=== PATIENT | male | born 1950 | race Caucasian/White ===

== ENCOUNTER 2019-02-01 15:58 | Emergency (ER) | payer BC, MEDICARE ==
[2019-02-01] MEDS ORDERED: Aspirin 81 MG Tab.Chew ONE (16:04)
[2019-02-01] MEDS ORDERED: Nitroglycerin 0.4 MG Tab.SL ONE (16:06)
[2019-02-01] MEDS ORDERED: Clopidogrel 75 MG Tab PO ONE (16:13)
[2019-02-01] MEDS ORDERED: Nitroglycerin 0.4 MG Tab.SL SL ONE (16:13)
[2019-02-01] MEDS ORDERED: Heparin Sodium 5,000 Units/ML Vial IVPUSH ONE (16:14)
[2019-02-01] MEDS ORDERED: Heparin Sodium/D5W 500 ML ONE (16:14)
[2019-02-01] MEDS ORDERED: Heparin Sodium/D5W 25,000 UNITS/500 ML BAG IV SCH (16:15)
--- NOTE | 2019-02-01 16:23 | EDM.PDOC ---
ED HPI GENERAL MEDICAL PROBLEM - General Chief Complaint: Chest Pain Stated Complaint: CHEST PAIN Time Seen by Provider: 02/01/19 16:00 Source of Information: Reports: Patient History Limitations: Reports: No Limitations - History of Present Illness INITIAL COMMENTS - FREE TEXT/NARRATIVE: 68-year-old male arrives with upper chest pain and arm pain while chopping firewood. Symptoms started 2 hours ago, seemed to wax and wane for an hour but are more intense the last 30 minutes. Some shortness of breath but no diaphoresis. Mild nausea. He came in to be evaluated and placed on a patient monitor and appears to have ST elevation. Onset: Sudden Duration: Hour(s): (2 hours ago) Location: Reports: Chest Associated Symptoms: Reports: Chest Pain, Shortness of Breath. Denies: Cough, Diaphoresis, Fever/Chills, Nausea/Vomiting Chest Pain Score (Numeric/FACES): 9 - Related Data Allergies Allergy/AdvReac Type Severity Reaction Status Date / Time No Known Allergies Allergy Verified 02/01/19 16:21 Home Meds: Home Meds Amitriptyline [Elavil] 10 mg PO QPM 07/07/14 [History] Aspirin [Halfprin] 81 mg PO QPM 07/07/14 [History] Metoprolol Succinate [Toprol XL] 50 mg PO QAM 07/07/14 [History] Multivitamin [Daily Vitamin] 1 tab PO QAM 07/07/14 [History] Niacin [Niaspan] 1,000 mg PO QPM 07/07/14 [History] atorvaSTATin [Lipitor] 20 mg PO QPM 07/07/14 [History] metFORMIN HCl [Metformin HCl] 1,000 mg PO BID 07/07/14 [History] Nitroglycerin [Nitrostat] 0.4 mg SL ASDIRECTED PRN 08/19/15 [History] Tolterodine [Detrol LA 24 Hr] 4 mg PO DAILY 08/19/15 [History] Multivitamin with Minerals [Multiple Vitamin] 1 tab PO DAILY 08/04/16 [History] Past Medical History HEENT History: Reports: Hard of Hearing, Other (See Below) 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 Cardiovascular History: Reports: CAD, Hypertension, Stents Respiratory History: Reports: Sleep Apnea Genitourinary History: Reports: BPH Musculoskeletal History: Reports: Other (See Below) Other Musculoskeletal History: left shoulder pain, right shoulder pain Neurological History: Reports: Other (See Below) Other Neuro History: 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 Endocrine/Metabolic History: Reports: Diabetes, Type II - Infectious Disease History Infectious Disease History: Reports: Chicken Pox, Measles, Mumps, Rubella, Shingles - Past Surgical History Cardiovascular Surgical History: Reports: Coronary Artery Stent Respiratory Surgical History: Reports: None GI Surgical History: Reports: Colonoscopy Endocrine Surgical History: Reports: None Musculoskeletal Surgical History: Reports: Shoulder Surgery Social & Family History - Tobacco Use Smoking Status *Q: Heavy Tobacco Smoker Years of Tobacco use: 50 Packs/Tins Daily: 1 - Caffeine Use Caffeine Use: Reports: Coffee Caffeine Use Comment: 4 cups per day - Recreational Drug Use Recreational Drug Use: No ED ROS GENERAL - Review of Systems Review Of Systems: See Below Constitutional: Denies: Fever, Chills HEENT: Reports: No Symptoms Respiratory: Reports: Shortness of Breath (Mild) Cardiovascular: Reports: Chest Pain. Denies: Palpitations GI/Abdominal: Denies: Nausea, Vomiting : Reports: No Symptoms Musculoskeletal: Reports: Arm Pain Skin: Reports: No Symptoms. Denies: Diaphoresis Neurological: Reports: No Symptoms ED EXAM, GENERAL - Physical Exam Exam: See Below Exam Limited By: No Limitations General Appearance: Alert, No Apparent Distress Eye Exam: Bilateral Eye: EOMI Head: Atraumatic Respiratory/Chest: No Respiratory Distress, Lungs Clear Cardiovascular: Regular Rate, Rhythm GI/Abdominal: Soft, Non-Tender Extremities: Normal Inspection. No: Pedal Edema Neurological: Alert, Oriented EKG INTERPRETATION ST-T: Elevated (Inferior leads consistent with RCA acute infarct) Course - Vital Signs Last Recorded V/S: Last Vital Signs Temp 94 F L 02/01/19 16:11 Pulse 74 02/01/19 16:20 Resp 16 02/01/19 16:20 BP 169/102 H 02/01/19 16:21 Pulse Ox 98 02/01/19 16:20 - Orders/Labs/Meds Labs: Laboratory Tests 02/01/19 02/01/19 Range/Units 16:09 16:09 WBC 9.4 (4.5-11.0) K/uL RBC 4.81 (4.30-5.90) M/uL Hgb 15.2 H D (12.0-15.0) g/dL Hct 44.1 (40.0-54.0) % MCV 92 (80-98) fL MCH 32 H (27-31) pg MCHC 35 (32-36) % Plt Count 200 (150-400) K/uL Neut % (Auto) 72 H (36-66) % Lymph % (Auto) 16 L (24-44) % [place] % (Auto) 11 H (2-6) % Eos % (Auto) 2 (2-4) % Baso % (Auto) 0 (0-1) % Sodium 141 (140-148) mmol/L Potassium 4.1 (3.6-5.2) mmol/L Chloride 102 (100-108) mmol/L Carbon Dioxide 26 (21-32) mmol/L Anion Gap 13.0 (5.0-14.0) mmol/L BUN 15 (7-18) mg/dL Creatinine 1.2 (0.8-1.3) mg/dL Est Cr Clr Drug Dosing 67.51 mL/min Estimated GFR (MDRD) > 60 (>60) Glucose 131 H (74-106) mg/dL Calcium 10.5 H D (8.5-10.1) mg/dL Total Bilirubin 1.1 H D (0.2-1.0) mg/dL AST 30 (15-37) U/L ALT 32 (12-78) U/L Alkaline Phosphatase 62 (46-116) U/L Troponin I < 0.017 (0.000-0.056) ng/mL Total Protein 8.0 (6.4-8.2) g/dL Albumin 4.5 (3.4-5.0) g/dL Globulin 3.5 (2.3-3.5) g/dL Albumin/Globulin Ratio 1.3 (1.2-2.2) Meds: Medications Discontinued Medications Generic Name Dose Route Start Last Admin Trade Name Kodyq PRN Reason Stop Dose Admin Aspirin Confirm 02/01/19 16:04 02/01/19 16:34 Aspirin Administered 02/01/19 16:05 Not Given Dose 243 mg .ROUTE .STK-MED ONE Aspirin 243 mg 02/01/19 16:28 02/01/19 16:10 Aspirin PO 02/01/19 16:29 243 mg ONETIME ONE Administration Clopidogrel Bisulfate 600 mg 04/24/19 16:13 02/01/19 16:21 Plavix PO 02/01/19 16:14 600 mg ONETIME ONE Administration Heparin Sodium (Porcine) 5,000 units 02/01/19 16:14 02/01/19 16:21 Heparin Sodium IVPUSH 02/01/19 16:15 5,000 units ONETIME ONE Administration Heparin Sodium/Dextrose 25,000 units in 500 mls @ 20 mls/hr 02/01/19 16:15 16:22 Heparin 25,000 Units In D5w 500 Ml IV 1,000 units/hr TITRATE CHU 20 mls/hr Administration Protocol 1,000 UNITS/HR Heparin Sodium/Dextrose Confirm 02/01/19 16:14 02/01/19 16:23 Heparin 25,000 Units In D5w 500 Ml Administered 02/01/19 16:15 Not Given Dose 500 mls @ as directed .ROUTE .STK-MED ONE Nitroglycerin Confirm 02/01/19 16:06 02/01/19 16:24 Nitrostat Administered 02/01/19 16:07 Not Given Dose 0.4 mg .ROUTE .STK-MED ONE Nitroglycerin 0.4 mg 02/01/19 16:13 02/01/19 16:21 Nitrostat SL 02/01/19 16:14 0.4 mg ONETIME ONE Administration - Re-Assessments/Exams Free Text/Narrative Re-Assessment/Exam: 02/01/19 16:22 IV was started, patient was given one sublingual nitroglycerin and also 3 low- dose aspirin as he had already had one dose. Urgent cardiology consultation was made, patient was prepared for transport for urgent catheterization evaluation. He was given 600 mg of oral Plavix, 5000 units of IV heparin and 1000 unit an hour drip was initiated to be continued in route. 02/01/19 16:27 Patient remained stable, Dr. Estrella, cardiology in [place] accepted the patient and he was urgently transferred. Departure - Departure Time of Disposition: 16:20 Disposition: DC/Tfer to Acute Hospital 02 Reason for Transfer *Q: Primary PCI Indicated Clinical Impression: Acute myocardial infarction Qualifiers: Myocardial infarction type: ST elevation myocardial infarction Involved coronary artery: right coronary artery Qualified Code(s): I21.11 - ST elevation (STEMI) myocardial infarction involving right coronary artery Referrals: PCP,None [Primary Care Provider] - Forms: ED Department Discharge
[2019-02-01] MEDS ORDERED: Aspirin 81 MG Tab.Chew PO ONE (16:28)
[2019-02-01 16:36] VITALS: BP 157/83
== END 2019-02-01 16:30 ==
LOC: JP.ED 15:58
DX: I21.11 ST elevation (STEMI) myocardial infarction involving right coronary artery (principal); I10 Essential (primary) hypertension; E11.9 Type 2 diabetes mellitus without complications; F17.210 Nicotine dependence, cigarettes, uncomplicated; Z79.899 Other long term (current) drug therapy
CPT/HCPCS: 36415; 80053; 84484; 85025; 93005; 96374; 99285; A9270; J1644

== ENCOUNTER 2019-10-02 06:29 | Day surgery (SDC) | payer BC, MEDICARE ==
[2019-10-02] MEDS ORDERED: Bupivacaine 0.5% 50 ML MDV ONE (06:52)
[2019-10-02] MEDS ORDERED: Lactated Ringers 1,000 ML IV SCH (07:00)
[2019-10-02] MEDS ORDERED: ceFAZolin 1 GM in Premix Bag 1 BAG IV ONE (07:30)
[2019-10-02] MEDS ORDERED: Propofol 200 MG/20 ML SDV ONE (07:37)
[2019-10-02] MEDS ORDERED: fentaNYL 100 MCG/2 ML SDV ONE (07:38)
[2019-10-02] MEDS ORDERED: Midazolam 1 MG/ML 2 ML SDV ONE (07:38)
[2019-10-02] MEDS ORDERED: Lidocaine 0.5% 50 ML SDV ONE (07:41)
[2019-10-02 09:23] VITALS: BP 117/77; PULSE 52
--- NOTE | 2019-10-09 19:18 | OR ---
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 POSTOPERATIVE DIAGNOSIS: Stenosing tenosynovitis, 3rd and 4th fingers, left hand. PROCEDURE: Release of A1 silvio, 3rd and 4th fingers, left hand. ANESTHESIA: [place] block with sedation. INDICATIONS: Ck is a pleasant 68-year-old gentleman, who has had persistent pain, catching, and locking of the 3rd and 4th fingers of his left hand. He has failed conservative treatment. He now presents for release of A1 silvio in each finger. Risks, benefits, potential complications of the procedure were discussed. DESCRIPTION OF PROCEDURE: After adequate anesthesia was obtained, the patient was supine, and the left hand was prepped and draped in a sterile fashion. A transverse incision was made on the palmar aspect in line with the distal flexion crease over the flexor tendons of the third finger. This was carried down through the subcutaneous tissues and tissues were spread protecting the digital nerves. Flexor tendon was identified and under direct visualization, an incision was made in the A1 silvio longitudinally. This was extended using an iris scissors proximally and distally. Confirmation of release of the silvio was done both by palpation and by visualization. The tendons were examined showing some thickening, but no other significant abnormalities. Attention was then turned to the 4th finger where a similar incision was made and carried down to the subcutaneous tissues. Tissues were spread. The flexor tendon was identified. Longitudinal incision was made in the A1 silvio with a 15 blade and then continued with an iris scissors. Confirmation of release of the silvio was made by palpation and by visualization. The tendons were evaluated and were found to have thickening and some degenerative partial tear noted along one slip of the flexor sublimis. This was debrided. Both wounds were then irrigated and closed with 4-0 nylon in interrupted mattress fashion. Both incisions were infiltrated in the skin with 0.25% Marcaine and a sterile dressing was applied. The patient tolerated the procedure very well. There were no complications. He was taken from the operating room in stable condition. Chente Zimmerman MD /[id number] [facility]Carol
== END 2019-10-02 09:40 | disposition home or self-care (01) ==
LOC: JP.SDS 06:29
PROVIDERS: ATTEND Specialist
DX: M65.332 Trigger finger, left middle finger (principal); M65.342 Trigger finger, left ring finger; G47.33 Obstructive sleep apnea (adult) (pediatric); I10 Essential (primary) hypertension; I25.10 Atherosclerotic heart disease of native coronary artery without angina pectoris; E11.9 Type 2 diabetes mellitus without complications; Z88.8 Allergy status to other drugs, medicaments and biological substances; Z87.891 Personal history of nicotine dependence; Z99.89 Dependence on other enabling machines and devices
CPT/HCPCS: 26055; 36415; 80048; 85027; J0690; J2001; J2250; J2704; J3010; J3490; J7120

== ENCOUNTER 2020-12-26 06:20 | Day surgery (SDC) | payer BC ==
[2020-12-26] MEDS ORDERED: Propofol 200 MG/20 ML SDV ONE (07:26)
[2020-12-26] MEDS ORDERED: fentaNYL 100 MCG/2 ML SDV ONE (07:26)
[2020-12-26] MEDS ORDERED: Midazolam 1 MG/ML 2 ML SDV ONE (07:26)
[2020-12-26] MEDS ORDERED: Sodium Chloride 0.9% 1,000 ML IV SCH (07:30)
[2020-12-26 10:29] VITALS: BP 109/62; PULSE 66
--- NOTE | 2020-12-26 11:00 | OR ---
DATE OF PROCEDURE: 12/26/2020 SURGEON: Jun Wang MD PROCEDURE: Colonoscopy. FINDINGS: 1. Ascending colon polyp, approximately 5 mm, completely removed using hot snare wire device. 2. Diverticulosis, mild to moderate, mostly concentrated in the sigmoid colon with a few noted in the remainder of the colon. COMPLICATIONS: None. RUBBER CUTTER: None. ANESTHESIA: MAC. PREOPERATIVE DIAGNOSIS: Positive Cologuard. POSTOPERATIVE DIAGNOSIS: Positive Cologuard. RISKS: Risks, benefits, alternatives, and limitations including, but not limited to infection, bleeding, perforation, false positives, false negatives were explained to the patient who wished to proceed. PROCEDURE IN DETAIL: The patient was placed in left lateral decubitus position. Digital rectal exam was performed without abnormality. Scope was introduced and advanced atraumatically to the ileocecal valve. A photo was taken of this. Scope was brought back to the ascending, transverse, descending colon, and retroflexed. The patient was noted to have diverticulosis, which would be described as without diverticulitis or bleeding, mostly concentrated in the sigmoid colon but throughout the entire colon. No evidence of colitis. No old or new blood. The aforementioned polyp was identified and completely removed. No abnormalities on retroflexion. The patient tolerated the procedure well. Greater than 12 minutes was spent removing the scope. No abnormalities on retroflexion. The prep was acceptable with approximately 90% of the luminal surface could be seen with some solid and liquid stool remaining. Jun Wang MD /[id number]
== END 2020-12-26 10:25 | disposition home or self-care (01) ==
LOC: JP.SDS 06:20
PROVIDERS: ATTEND Surgery
DX: K63.5 Polyp of colon (principal); K57.30 Diverticulosis of large intestine without perforation or abscess without bleeding; I10 Essential (primary) hypertension; I25.10 Atherosclerotic heart disease of native coronary artery without angina pectoris; E11.9 Type 2 diabetes mellitus without complications; I25.2 Old myocardial infarction; E66.9 Obesity, unspecified; Z68.25 Body mass index [BMI] 25.0-25.9, adult; Z87.891 Personal history of nicotine dependence; Z88.8 Allergy status to other drugs, medicaments and biological substances
CPT/HCPCS: 88305; J2250; J2704; J3010; J7030

== ENCOUNTER 2022-10-08 06:53 | Day surgery (SDC) | payer BC, MEDICARE ==
[2022-10-08] MEDS ORDERED: Propofol 200 MG/20 ML SDV ONE (07:22)
[2022-10-08] MEDS ORDERED: Midazolam 1 MG/ML 2 ML SDV ONE (07:22)
[2022-10-08] MEDS ORDERED: fentaNYL 50 MCG/ML SDV ONE (07:22)
[2022-10-08] MEDS ORDERED: Lactated Ringers 1,000 ML IV SCH (07:30)
[2022-10-08 09:45] VITALS: BP 130/69; PULSE 50
== END 2022-10-08 09:51 | disposition home or self-care (01) ==
LOC: JP.SDS 06:53
PROVIDERS: ATTEND Family Medicine
DX: Z12.11 Encounter for screening for malignant neoplasm of colon (principal); D12.5 Benign neoplasm of sigmoid colon; D12.3 Benign neoplasm of transverse colon; K57.30 Diverticulosis of large intestine without perforation or abscess without bleeding; E11.9 Type 2 diabetes mellitus without complications; Z86.010 Personal history of colon polyps; Z88.8 Allergy status to other drugs, medicaments and biological substances; Z95.5 Presence of coronary angioplasty implant and graft; Z79.899 Other long term (current) drug therapy
CPT/HCPCS: 45380; 88305; J2250; J2704; J3010; J7120

== ENCOUNTER 2024-03-27 07:40 | Inpatient (IN) | payer OTHER, MEDICARE ==
[2024-03-27] MEDS ORDERED: Naloxone 0.4 MG/ML SDV IVPUSH PRN ×2 (09:10→13:35)
[2024-03-27 09:21] LABS: BASOPHILS PERCENT AUTO 0.2 % (0.1-1.3); EOSINOPHILS ABSOLUTE AUTO 0.03 K/uL (0.00-0.40); EOSINOPHILS PERCENT AUTO 0.3 % (0.0-5.4); HEMOGLOBIN 13.5 g/dL (12.9-16.9); IMMATURE GRAN ABSOLUTE AUTO 0.04 K/uL (0.00-0.23); IMMATURE GRAN PERCENT AUTO 0.4 % (0.0-0.7); LYMPHOCYTES ABSOLUTE AUTO 0.56 K/uL (0.8-3.3); LYMPHOCYTES PERCENT AUTO 5.5 % (11.4-47.7); MEAN CORPUSCULAR HEMOGLOBIN 32.8 pg (31.6-35.5); MEAN CORPUSCULAR HGB CONC 35.5 g/dL (31.6-35.5); MEAN CORPUSCULAR VOLUME 92.5 fL (81.4-99.0); MONOCYTES PERCENT AUTO 12.7 % (3.3-12.6); NEUTROPHILS ABSOLUTE AUTO 8.28 K/uL (1.0-7.6); NEUTROPHILS PERCENT AUTO 80.9 % (40.0-78.1); PLATELET COUNT,PLT 143 K/uL (130-375); RED BLOOD CELL COUNT 4.11 M/uL (4.14-5.76); WHITE BLOOD CELL COUNT,WBC 10.2 K/uL (3.2-11.0)
[2024-03-27] MEDS: Ondansetron 4 MG/2 ML SDV IVPUSH PRN (09:23)
[2024-03-27] MEDS: HYDROmorphone 0.5 MG/0.5 ML Syringe IVPUSH PRN ×2 (09:23→15:37)
[2024-03-27] MEDS: Sodium Chloride 0.9% 1,000 ML IV SCH (09:24)
[2024-03-27 09:28] LABS: BASOPHILS ABSOLUTE AUTO 0.02 K/uL (0.00-0.10)
[2024-03-27 09:36] LABS: APPEARANCE,URINE CLEAR (CLEAR); BILIRUBIN,URINE NEGATIVE (NEGATIVE); COLOR,URINE YELLOW (YELLOW); GLUCOSE,URINE NEGATIVE (NEGATIVE); KETONES,URINE TRACE mg/dL (NEGATIVE); LEUKOCYTE ESTERASE,URINE NEGATIVE (NEGATIVE); NITRITE,URINE NEGATIVE (NEGATIVE); OCCULT BLOOD,URINE NEGATIVE (NEGATIVE); PH,URINE 5.5 (5.0-8.0); PROTEIN,URINE 30 mg/dL (NEGATIVE); UROBILINOGEN,URINE 0.2 EU/dL (0.2-1.0)
[2024-03-27 09:46] LABS: ALANINE AMINOTRANSFERASE,ALT 22 U/L (12-78); ALBUMIN 3.7 g/dL (3.4-5.0); ALKALINE PHOSPHATASE 42 U/L (46-116); ASPARTATE AMNIOTRANSFERASE,AST 18 U/L (15-37); BILIRUBIN TOTAL 1.2 mg/dL (0.2-1.0); BLOOD UREA NITROGEN,BUN 18 mg/dL (7-18); CALCIUM 9.4 mg/dL (8.5-10.1); CARBON DIOXIDE,CO2 26 mmol/L (21-32); CHLORIDE,CL 101 mmol/L (100-108); EST CRCL DRUG DOSING (CG) 73.29 mL/min; ESTIMATED GFR 80 mL/min (>60); GLUCOSE RANDOM 170 mg/dL (74-106); POTASSIUM,K 4.2 mmol/L (3.6-5.2); PROTEIN TOTAL,TP 7.6 g/dL (6.4-8.2); SODIUM,NA 137 mmol/L (140-148); TROPONIN I HIGH SENSITIVITY 11.5 pg/mL (<=60.3)
[2024-03-27 09:49] LABS: ANION GAP 14.2 mmol/L (5.0-14.0)
[2024-03-27 09:55] LABS: AMORPHOUS SEDIMENT,URINE NOT SEEN; BACTERIA,URINE NOT SEEN; EPITHELIAL CELLS,URINE FEW; MUCUS,URINE MANY; RBC,URINE NOT SEEN (0-5); WBC,URINE NOT SEEN (0-5)
[2024-03-27 10:11] LABS: INFLUENZA A NAA NEGATIVE (NEGATIVE); INFLUENZA B NAA NEGATIVE (NEGATIVE); RESPIRATORY SYNCYTIAL VIR NAA NEGATIVE (NEGATIVE)
[2024-03-27 10:15] LABS: CORONAVIRUS COVID-19 NAA POSITIVE (NEGATIVE)
[2024-03-27] MEDS: Sodium Chloride 0.9% 10 ML Syringe FLUSH PRN (11:01)
[2024-03-27] MEDS: Sodium Chloride 0.9% 80 ML IV ONE (11:01)
[2024-03-27] MEDS: Iopamidol 612 MG/ML 100 ML Bottle IV PRN (11:01)
[2024-03-27] MEDS ORDERED: Heparin Sodium/D5W 25,000 UNITS/500 ML BAG IV SCH (11:45)
[2024-03-27] MEDS: Apixaban 5 MG Tab PO SCH ×2 (12:45→21:02)
[2024-03-27] MEDS ORDERED: Sodium Chloride 0.9% 10 ML Syringe FLUSH PRN (13:35)
[2024-03-27] MEDS ORDERED: Glucose Gel 15 GM in 37.5 GM Tube PO PRN (13:35)
[2024-03-27] MEDS ORDERED: Albuterol 0.083% 2.5 MG/3 ML Neb Soln NEB PRN (13:35)
[2024-03-27] MEDS ORDERED: Ondansetron 4 MG/2 ML SDV IV PRN (13:35)
[2024-03-27] MEDS ORDERED: 50% Dextrose in Water 50 ML Syringe IV PRN (13:35)
[2024-03-27] MEDS ORDERED: Polyethylene Glycol 3350 Powder 17 GM Packet PO PRN (13:35)
[2024-03-27] MEDS ORDERED: Latanoprost 0.005% Ophth Soln 2.5 ML Bottle EYEBOTH PRN (13:35)
[2024-03-27] MEDS: Dexamethasone 4 MG/ML SDV IVPUSH SCH (14:10)
[2024-03-27] MEDS: Acetaminophen 325 MG Tab PO PRN (14:10)
[2024-03-27] MEDS: REMDESIVIR 200 MG in Sodium Chloride 0.9% 250 ML IV ONE (14:13)
[2024-03-27] MEDS ORDERED: atorvaSTATin 20 MG Tab PO SCH ×2 (17:00)
[2024-03-27] MEDS: Insulin Lispro 100 Unit/ML 3 ML KwikPen SUBCUT SCH (17:14)
[2024-03-27] MEDS: Aspirin 81 MG Tab.EC PO SCH (17:15)
[2024-03-27] MEDS: atorvaSTATin 20 MG Tab PO SCH (18:13)
[2024-03-27] MEDS: Carvedilol 3.125 MG Tab PO SCH (20:34)
[2024-03-27] MEDS: Ezetimibe 10 MG Tab PO SCH (20:35)
[2024-03-28 05:29] LABS: BASOPHILS PERCENT AUTO 0.2 % (0.1-1.3); HEMOGLOBIN 12.8 g/dL (12.9-16.9); IMMATURE GRAN ABSOLUTE AUTO 0.05 K/uL (0.00-0.23); IMMATURE GRAN PERCENT AUTO 0.4 % (0.0-0.7); LYMPHOCYTES ABSOLUTE AUTO 0.87 K/uL (0.8-3.3); LYMPHOCYTES PERCENT AUTO 6.8 % (11.4-47.7); MEAN CORPUSCULAR HEMOGLOBIN 32.3 pg (31.6-35.5); MEAN CORPUSCULAR HGB CONC 34.6 g/dL (31.6-35.5); MEAN CORPUSCULAR VOLUME 93.4 fL (81.4-99.0); MONOCYTES ABSOLUTE AUTO 1.46 K/uL (0.20-0.90); MONOCYTES PERCENT AUTO 11.5 % (3.3-12.6); NEUTROPHILS ABSOLUTE AUTO 10.34 K/uL (1.0-7.6); NEUTROPHILS PERCENT AUTO 81.1 % (40.0-78.1); PLATELET COUNT,PLT 149 K/uL (130-375); RED BLOOD CELL COUNT 3.96 M/uL (4.14-5.76); WHITE BLOOD CELL COUNT,WBC 12.7 K/uL (3.2-11.0)
[2024-03-28 05:32] LABS: BASOPHILS ABSOLUTE AUTO 0.02 K/uL (0.00-0.10)
[2024-03-28 05:54] LABS: A/G RATIO 0.8 (1.2-2.2); ALANINE AMINOTRANSFERASE,ALT 23 U/L (12-78); ALBUMIN 3.3 g/dL (3.4-5.0); ALKALINE PHOSPHATASE 36 U/L (46-116); ASPARTATE AMNIOTRANSFERASE,AST 16 U/L (15-37); BILIRUBIN TOTAL 0.6 mg/dL (0.2-1.0); BLOOD UREA NITROGEN,BUN 16 mg/dL (7-18); CARBON DIOXIDE,CO2 28 mmol/L (21-32); CHLORIDE,CL 101 mmol/L (100-108); CREATININE 1.1 mg/dL (0.8-1.3); EST CRCL DRUG DOSING (CG) 66.63 mL/min; ESTIMATED GFR 71 mL/min (>60); GLUCOSE RANDOM 131 mg/dL (74-106); MAGNESIUM 1.9 mg/dL (1.8-2.4); POTASSIUM,K 4.3 mmol/L (3.6-5.2); PROTEIN TOTAL,TP 7.3 g/dL (6.4-8.2); SODIUM,NA 136 mmol/L (140-148)
[2024-03-28 05:57] LABS: ANION GAP 11.3 mmol/L (5.0-14.0)
[2024-03-28] MEDS: Losartan 25 MG Tab PO SCH (09:04)
[2024-03-28] MEDS: REMDESIVIR 100 MG in Sodium Chloride 0.9% 100 ML IV SCH (14:04)
[2024-03-28] MEDS: metFORMIN 500 MG Tab PO SCH (17:03)
[2024-03-28] MEDS ORDERED: atorvaSTATin 20 MG Tab PO SCH (18:00)
[2024-03-28] MEDS: Melatonin 3 MG Tab PO PRN (21:26)
[2024-03-29 06:34] LABS: ANION GAP 11.8 mmol/L (5.0-14.0); BLOOD UREA NITROGEN,BUN 19 mg/dL (7-18); CALCIUM 9.5 mg/dL (8.5-10.1); CARBON DIOXIDE,CO2 28 mmol/L (21-32); CHLORIDE,CL 102 mmol/L (100-108); EST CRCL DRUG DOSING (CG) 73.29 mL/min; ESTIMATED GFR 80 mL/min (>60); GLUCOSE RANDOM 151 mg/dL (74-106); HEMOGLOBIN 12.4 g/dL (12.9-16.9); MEAN CORPUSCULAR HEMOGLOBIN 32.5 pg (31.6-35.5); MEAN CORPUSCULAR HGB CONC 35.4 g/dL (31.6-35.5); MEAN CORPUSCULAR VOLUME 91.9 fL (81.4-99.0); POTASSIUM,K 4.8 mmol/L (3.6-5.2); PROTEIN TOTAL,TP 7.3 g/dL (6.4-8.2); RED BLOOD CELL COUNT 3.81 M/uL (4.14-5.76); SODIUM,NA 137 mmol/L (140-148); WHITE BLOOD CELL COUNT,WBC 11.6 K/uL (3.2-11.0)
[2024-03-29 06:35] LABS: A/G RATIO 0.8 (1.2-2.2); ALANINE AMINOTRANSFERASE,ALT 22 U/L (12-78); ALBUMIN 3.2 g/dL (3.4-5.0); ALKALINE PHOSPHATASE 44 U/L (46-116); ASPARTATE AMNIOTRANSFERASE,AST 16 U/L (15-37); BILIRUBIN TOTAL 0.5 mg/dL (0.2-1.0)
[2024-03-29] MEDS: oxyCODONE 5 MG Tab PO PRN (08:09)
[2024-03-30 05:23] LABS: A/G RATIO 0.8 (1.2-2.2); ALANINE AMINOTRANSFERASE,ALT 26 U/L (12-78); ALBUMIN 3.2 g/dL (3.4-5.0); ALKALINE PHOSPHATASE 38 U/L (46-116); ANION GAP 13.2 mmol/L (5.0-14.0); ASPARTATE AMNIOTRANSFERASE,AST 17 U/L (15-37); BILIRUBIN TOTAL 0.6 mg/dL (0.2-1.0); BLOOD UREA NITROGEN,BUN 20 mg/dL (7-18); CALCIUM 9.4 mg/dL (8.5-10.1); CARBON DIOXIDE,CO2 28 mmol/L (21-32); CHLORIDE,CL 101 mmol/L (100-108); EST CRCL DRUG DOSING (CG) 73.29 mL/min; ESTIMATED GFR 80 mL/min (>60); GLUCOSE RANDOM 148 mg/dL (74-106); POTASSIUM,K 5.2 mmol/L (3.6-5.2); PROTEIN TOTAL,TP 7.3 g/dL (6.4-8.2); SODIUM,NA 137 mmol/L (140-148)
[2024-03-30 11:17] VITALS: BP 127/64; PULSE 64
== END 2024-03-30 13:23 | disposition home or self-care (01) | DRG 177 ==
LOC: JP.ED 07:40 → JP.MS 12:26
PROVIDERS: ADMIT Hospitalist; ATTEND Hospitalist
PROC: XW033E5 Introduction of Remdesivir Anti-infective into Peripheral Vein, Percutaneous Approach, New Technology Group 5 (ICD-10-PCS; principal; 2024-03-27)
PROC: 3E0333Z Introduction of Anti-inflammatory into Peripheral Vein, Percutaneous Approach (ICD-10-PCS; 2024-03-27)
DX: U07.1 COVID-19 (principal); I26.94 Multiple subsegmental thrombotic pulmonary emboli without acute cor pulmonale; J96.01 Acute respiratory failure with hypoxia; H91.90 Unspecified hearing loss, unspecified ear; I25.10 Atherosclerotic heart disease of native coronary artery without angina pectoris; I10 Essential (primary) hypertension; G47.30 Sleep apnea, unspecified; N40.0 Benign prostatic hyperplasia without lower urinary tract symptoms; G51.0 Bell's palsy; E11.9 Type 2 diabetes mellitus without complications; Z96.659 Presence of unspecified artificial knee joint; Z79.82 Long term (current) use of aspirin; Z88.8 Allergy status to other drugs, medicaments and biological substances; Z79.84 Long term (current) use of oral hypoglycemic drugs; Z79.899 Other long term (current) drug therapy; Z79.2 Long term (current) use of antibiotics; I25.2 Old myocardial infarction; Z95.5 Presence of coronary angioplasty implant and graft; Z86.010 Personal history of colon polyps; Z87.19 Personal history of other diseases of the digestive system; Z98.890 Other specified postprocedural states; Z87.891 Personal history of nicotine dependence
CPT/HCPCS: 0241U; 36415; 71275; 71275-26; 76705; 76705-26; 80053; 81001; 82947; 83605; 83690; 83735; 84145; 84484; 85025; 85027; 85379; 86140; 93005; 94762; 96361; 96374; 96375; 97161-GP; 97530-GP; 99222; 99232; 99238; 99284; 99285-25; A9270-GY; J1100; J1170; J1815; J2405; J3490; J7030; J7050; Q9967

== ENCOUNTER 2025-06-13 06:18 | Day surgery (SDC) | payer MEDICARE, OTHER ==
[2025-06-13] MEDS ORDERED: Premix Bag 1 BAG IV ONE (06:30)
[2025-06-13 06:47] LABS: PLATELET COUNT,PLT 166.0 K/uL (130-375); RED BLOOD CELL COUNT 4.19 M/uL (4.14-5.76); WHITE BLOOD CELL COUNT,WBC 6.0 K/uL (3.2-11.0)
[2025-06-13] MEDS: Lactated Ringers 1,000 ML IV SCH (06:59)
[2025-06-13] MEDS: Nozin Nasal Sanitizer NASBOTH ONE (07:00)
[2025-06-13 07:01] LABS: BLOOD UREA NITROGEN,BUN 17.0 mg/dL (7-18); CARBON DIOXIDE,CO2 29.0 mmol/L (21-32); CHLORIDE,CL 101.0 mmol/L (100-108); CREATININE 1.0 mg/dL (0.8-1.3); EST CRCL DRUG DOSING (CG) 72.21 mL/min; ESTIMATED GFR 79.0 mL/min (>60); GLUCOSE RANDOM 181.0 mg/dL (74-106); POTASSIUM,K 4.1 mmol/L (3.6-5.2); SODIUM,NA 137.0 mmol/L (140-148)
[2025-06-13] MEDS ORDERED: Propofol 200 MG/20 ML SDV ONE (07:16)
[2025-06-13] MEDS ORDERED: fentaNYL 100 MCG/2 ML SDV ONE (07:16)
[2025-06-13] MEDS ORDERED: Dexamethasone 4 MG/ML SDV ONE (07:16)
[2025-06-13] MEDS ORDERED: Ondansetron 4 MG/2 ML SDV ONE (07:16)
[2025-06-13] MEDS ORDERED: ePHEDrine 50 MG/ML SDV ONE (08:11)
[2025-06-13] MEDS: Bupivacaine 0.25%/EPINEPHrine 1:200,000 30 ML SDV ONE (08:23)
[2025-06-13] MEDS ORDERED: Ketorolac 30 MG/ML SDV ONE (08:53)
[2025-06-13 11:16] VITALS: BP 123/58; PULSE 56
== END 2025-06-13 10:15 | disposition home or self-care (01) ==
LOC: JP.SDS 06:18
PROVIDERS: ATTEND Specialist
DX: M70.22 Olecranon bursitis, left elbow (principal); M70.21 Olecranon bursitis, right elbow; I10 Essential (primary) hypertension; E11.9 Type 2 diabetes mellitus without complications; I25.10 Atherosclerotic heart disease of native coronary artery without angina pectoris; Z88.8 Allergy status to other drugs, medicaments and biological substances; Z79.899 Other long term (current) drug therapy
CPT/HCPCS: 01710-QZ; 36415; 80048; 85027; A9270-GY; J0665; J0690; J1100; J1885; J2405; J2704; J3010; J7120